=== PATIENT | female | born 1945 ===

== ENCOUNTER 2025-05-11 13:55 | Outpatient (AMB) | payer MEDICARE, OTHER, SELFPAY ==
--- OUTSIDE RECORDS SUMMARY | 2024-12-16 07:45 | XMS_ITS ---
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 Name Role Phone Becki CHACON, Eyad Primary Care Provider Unavail able Cathy Loaiza [phone] Encounters Encounter Location Date Provider Diagnosis [address] [address] 12/16/2024 Cathy Loaiza Plan Of Treatment Next Appt Details Provider Name:Cathy Loaiza , 06/14/2025 01:15:00 PM, [address] [place] [address], [place], [address], Progress Notes * Genesis FERNANDEZhDOB:1945 (79 yo F)Acc No.[id number]:12/16/2024 Progress Note Patient: Mehnaz BOTELLO Provider: Pablo Loaiza DPM :1945 A ge:79 Y S ex:Female Date:12/16/2024 [address] [id number] Pcp:Eyad Connell MD Subjective: * Chief Complaints: * * Medical History: Objective: * Vitals: Assessment: Plan: * Treatment: * Images: * The named appointment provid er may or may not be the originator of this progress note, and it is not deemed complete until electronically signed by the appointment provider. Sign off status: Pending * Provider: Pablo Loaiza DPM Date: 0 12/16/2024 Generated for Yoandy larson/Alberto/Samreen on: 1 07/12/2024 09:12 PM EST
--- OUTSIDE RECORDS SUMMARY | 2025-02-07 09:00 | XMS_ITS ---
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 Mechanic Apprentice Name Role Phone Eyad Connell MD Primary Care Provider Unavail able Cathy Loaiza Unavailable [phone] Medications Medication SIG (Take, Route, Frequency, Duration) Notes Start Date End Date Status Ultram Active Tretinoin 0.05 % 1 application in the evening to face Externally Once a day Active Omeprazole 20 MG 1 capsule 30 minutes before morning meal Orally Once a day; Duration: 30 day(s) Active Gabapentin 600 MG 1 tablet Orally Once a day; Duration: 30 day(s) Active Etodolac ER 600 MG 1 tablet with food Orally Once a day; Duration: 30 day(s) Active DULoxetine HCl 20 MG 1 capsule Orally Tw ice a day; Duration: 30 day(s) Active Myrbetriq 25 MG 1 tablet Orally Once a day; Duration: 30 day(s) Not-Figueroa ing Physical Therapy . . . 2-3x/week; Durat ion: 3-4 weeks 08/10/2020 Not-Taking Night Splint AFO - L1930 as directed 08/10/2020 Not-Taking Estradiol Acetate 0.1 MG/24HR as directed Vaginal Not-Taki ng Cetirizine HCl 10 MG 1 tablet Orally Onc e a day; Duration: 30 day(s) Not-Figueroa ing Eliquis 5 MG 1 tablet Orally Twic e a day Not-Taking Encounters En[facility] Date [facility] [place] [address] 02/07/2025 Cathy Loaiza Plan Of Treatment Next Appt Details Provider Name:Cathy Loaiza , 06/14/2025 01:15:00 PM, [address] [facility], [place], [address], Progress Notes * Genesis FERNANDEZhDOB:1945 (79 yo F)Acc No.[id number]:02/07/2025 Progress Note Patient: Mehnaz BOTELLO Provider: Pablo Loaiza DPM :1945 A ge:79 Y S ex:Female Date:02/07/2025 [address]: [address] [facility] Pcp:Eyad Connell MD Subjective: * Chief Complaints: * * Medical History: * Medications: T aking DULoxetine HCl 20 MG Capsule Delayed Release Particles 1 capsule Orally Twice a day , Taking Etodolac ER 600 MG Tablet Extended Release 24 Hour 1 tablet with food Orally Once a day , Taking Gabapentin 600 MG Tablet 1 tablet Orally Once a day , Taking Omeprazole 20 MG Capsule Delayed Release 1 capsule 30 minutes before morning meal Orally Once a day , Taking Tretinoin 0.05 % Cream 1 application in the evening to face Externally Once a day , Taking Ultram , Not-Taking/PRN Eliquis 5 MG Tablet 1 tablet Orally Twice a day , Not-Taking/PRN Cetirizine HCl 10 MG Tablet 1 tablet Orally Once a day , Not-Taking/PRN Estradiol Acetate 0.1 MG/24HR Ring as directed Vaginal , Not-Taking/PRN Night Splint AFO - L1930 as directed , Not-Taking/PRN Physical Therapy . . . . 2-3x/week , Not-Taking/PRN Myrbetriq 25 MG Tablet Extended Release 24 Hour 1 tablet Orally Once a day Objective: * Vitals: Assessment: Plan: * Treatment: * Images: * The named appointment provid er may or may not be the originator of this progress note, and it is not deemed complete until electronically signed by the appointment provider. Sign off status: Pending * Provider: Pablo Loaiza DPM Date: 0 02/07/2025 Generated for Yoandy larson/Alberto/eTransmitting on: 1 07/12/2024 09:11 PM EST
--- NOTE | 2025-05-11 13:57 | A.PHYSOV ---
Vital Signs 05/11/25 13:58 Height 5 ft 2 in Weight 133 lb BMI 24.3 Intake Visit Reasons: Reevaluation for back injection Intake Note: Patient is a 79 year old female in office today for a re-evaluation for back injections. 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 She has a history of L4-L5 fusion and has developed spinal stenosis above the fusion site. A lumbar spine MRI from August 27, 2021, demonstrated moderate central and bilateral neuroforaminal stenosis at the L3-L4 level. Her pain is exacerbated by standing and walking and is relieved by sitting. The patient does not use any assistive devices. She underwent bilateral L3 transforaminal injections on May 24, 2024, which improved her leg pain and sleep for approximately one year. Recently, she has experienced significant pain in her left leg, particularly when lying down, which keeps her awake at night. She notes that finding a position to relieve the pain can be difficult. Over the summer, the patient was ill with a viral infection and subsequently contracted Lyme disease, which led to unintentional weight loss. She also has a history of shortness of breath, and an evaluation in November 2024 suggested a possible 70% arterial blockage. However, a subsequent cardiac procedure in March determined that the blockage was not significant enough to require a stent. Pain Description - Location: The patient reports chronic lower back pain and significant pain in her left leg. - Quality: Left leg pain keeps her awake at night. - Exacerbating Factors: Pain is worsened by standing and walking, and the left leg pain is worse when lying down. - Relieving Factors: Pain is relieved by sitting down. - Functional Interference: Her left leg pain interferes with her ability to sleep. Results - Imaging: Lumbar spine MRI dated August 27, 2021, showed moderate central and bilateral neuroforaminal stenosis at L3-L4. - Procedures: Cardiac catheterization in March showed an arterial blockage that was not significant enough to require a stent. [facility] Medical History (Updated 05/11/25 @ 14:24 by Kevin Paz DO) Post laminectomy syndrome Lumbar radiculitis Spinal stenosis, lumbar region with neurogenic claudication Surgical History (Updated 05/11/25 @ 14:03 by Tracy Gonzales MA) History of ankle surgery (Unknown) History of cataract surgery History of tonsillectomy H/O: hysterectomy History of lumbar fusion Social History Household Members: Children Alcohol intake: current Alcohol intake frequency: does not drink Patient Tobacco Use Status: Former Tobacco user Use of substances other than those prescribed or required for medical reasons: No Current occupational status: retired Review of Systems Narrative Review of Systems - Constitutional: Reports unintentional weight loss secondary to recent illness. - Cardiovascular: Reports history of shortness of breath; recent cardiac catheterization did not require stenting. - Musculoskeletal: Reports chronic lower back pain. - Neurological: Reports left leg pain that disturbs sleep, and some pain in the right leg. - Infectious Disease: Reports a recent viral illness and Lyme disease. Denies change in bowel bladder habits. Denies fever or chills. Physical Exam Exam Exam: Physical Exam - General: Appears to have lost weight. Patient ambulates without antalgia. Lumbar extension was restricted. Dural tension signs were negative. The SI provocative maneuvers were negative. Neurological examination was nonfocal. She was able to perform heel walk and toe walk with support for balance. Vital Signs: BMI result Body Mass Index 24.3 Assessment & Plan Assessment & Plan (1) Spinal stenosis, lumbar region with neurogenic claudication: Code(s): M48.062 - Spinal stenosis, lumbar region with neurogenic claudication Category: Medical (2) Lumbar radiculitis: Code(s): M54.16 - Radiculopathy, lumbar region Category: Medical (3) Post laminectomy syndrome: Code(s): M96.1 - Postlaminectomy syndrome, not elsewhere classified Category: Medical Plan Pain Management - Affect: The patient's left leg pain keeps her awake. - Analgesia: Bilateral L3 transforaminal injections approximately one year ago provided significant relief. - Activities of Daily Living: Pain is exacerbated by standing and walking. Plan Patient was informed and verbally consented to the use of an ambient scribe for clinic note documentation during this visit. 1. Lumbar Spinal Stenosis The patient's symptoms of chronic back pain and new-onset left leg pain are consistent with her known diagnosis of lumbar spinal stenosis at L3-L4, superior to her previous L4-L5 fusion. Given that she had significant, year-long relief from her previous procedure, the plan is to repeat bilateral L3 transforaminal epidural steroid injections. As the patient requires sedation, the procedure will be scheduled at the [facility] on a Thursday, with scheduling to occur after the holiday. 2. Coronary Artery Disease The patient's history of coronary artery disease, which was evaluated via cardiac catheterization and did not require a stent, is noted. She has been advised to continue with diet and exercise. This condition is stable and does not present a contraindication for the planned epidural steroid injection. Risks and benefits of the procedure were discussed with the patient. Potential alternative measures were also discussed. Patient understands that the procedure is completely elective. Potential side effects associated with injectable medications were discussed. All questions were answered to the patient's satisfaction. Discussion Notes I discussed with the patient that her returning leg pain is likely due to her known spinal stenosis. Given the significant relief from her prior injections about a year ago, I recommended repeating the bilateral L3 transforaminal epidural steroid injections. I explained that because she requires sedation, the procedure would need to be performed at the [facility]. The patient agreed to this plan and understands she will need a mobile lounge driver. We discussed that scheduling would occur after the hol, and she will be contacted by my staff. Patient Instructions - We will schedule you for bilateral L3 transforaminal steroid injections to help with your back and leg pain. - This procedure will be done with sedation, so you will need someone to drive you home. - The procedure will take place at the [facility]. - Our office will call you to schedule the appointment, which will be sometime after the . - Continue to follow your diet and exercise plan as recommended for your heart health. Orders: Referrals Physiatry Procedure Notification M48.062 - Spinal stenosis, lumbar region with neurogenic claudication, M54.16 - Radiculopathy, lumbar region, M96.1 - Postlaminectomy syndrome, not elsewhere classified Coding Level of Care Code Est Pt Level 4 (08136) Add On Problem Visit Only Diagnoses Spinal stenosis, lumbar region with neurogenic claudication M48.062 Lumbar radiculitis M54.16 Post laminectomy syndrome M96.1
[2025-05-11 13:58] VITALS: BMI 24.3
--- OUTSIDE RECORDS SUMMARY | 2025-05-11 21:11 | XMS_ITS | Patient Health Record ---
Author Organization [facility] Address [address] [facility] [place] [address] Care Team Providers Care Gate Watchman Name Role Phone Eyad Connell MD Primary Care Provider Unavail able Black, Cathy Unavailable [phone] Allergies Allergen (clinical drug ingredient) Drug/Non Drug Allergy documented on EMR Reaction Allergy Type Onset Date Status Adhesive skin tear Allergy Active Bee Sting swelling Allergy Active Dust Mites Unknown Allergy Active Latex Latex skin irritation Allergy Acti ve Mold Unknown Allergy Active Reason For Referral No Information Medications Medication SIG (Take, Route, Frequency, Duration) Notes Start Date End Date Status Cetirizine HCl 10 MG 1 tablet Orally Onc e a day; Duration: 30 day(s) Not-Figueroa ing Eliquis 5 MG 1 tablet Orally Twic e a day Not-Taking Ultram Active Tretinoin 0.05 % 1 application in the evening to face Externally Once a day Active DULoxetine HCl 20 MG 1 capsule Orally Tw ice a day; Duration: 30 day(s) Active Myrbetriq 25 MG 1 tablet Orally Once a day; Duration: 30 day(s) Not-Figueroa ing Physical Therapy . . . 2-3x/week; Durat ion: 3-4 weeks 08/10/2020 Not-Taking Night Splint AFO - L1930 as directed 08/10/2020 Not-Taking Estradiol Acetate 0.1 MG/24HR as directed Vaginal Not-Taki ng Omeprazole 20 MG 1 capsule 30 minutes before morning meal Orally Once a day; Duration: 30 day(s) Active Gabapentin 600 MG 1 tablet Orally Once a day; Duration: 30 day(s) Active Etodolac ER 600 MG 1 tablet with food Orally Once a day; Duration: 30 day(s) Active Social History Tobacco Use: Social History Observation Description Date Details (start date - stop date) Never Smoker NA - NA Tobacco use other than smoking: Question Answer Notes Are you an other tobacco user? No Tobacco Control (Standard) Question Answer Notes Tobacco use: Nonsmoker Additional Findings: Tobacco non-user Current no nsmoker AUDIT-C (Standard) Question Answer Notes Did you have a drink containing alcohol in the p ast year? 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) Active confirmed Problem Localized, primary osteoarthritis of the ankle and/or foot (301966053) Arthritis of joint of lesser toe, left (M19.072) Active confirmed Vital Signs Blood pressure diastolic 77 mm Hg 06/17/2024 Height 5 ft 2 in in 06/17/2024 Blood pressure systolic 120 mm Hg 06/17/2024 Weight 120 lbs 06/17/2024 BMI 21.95 kg/m2 06/17/2024 Procedures Procedure Date Ordered Date Performed Result Body Sit e 31254-QJHRCNH NAIL, 6 OR MORE 06/17/2024 N/A Encounters Encounter Location Date Provider Diagnosis [facility] [address] [place] [address] 06/17/2024 Cathy Black Tailor's bunion of l eft foot M21.622 ; Pain in left toe(s) M79.675 ; Tinea unguium B35.1 ; Pain in right toe(s) M79.674 ; Pain in left toe(s) M79.675 ; Right foot pain M79.671 ; Arthralgia of right foot M25.571 ; Bursitis of right foot M77.51 ; Tailor's bunion of right foot M21.621 ; Left foot pain M79.672 ; Arthralgia of left foot M25.572 ; Bursitis of left foot M77.52 ; Other hammer toe(s) (acquired), left foot M20.42 ; Arthritis of joint of lesser toe, left M19.072 and Subluxation of metatarsophalangeal joint of toe, initial encounter S93.149A [facility] [address] [address] 12/15/2024 Cathy Loaiza [facility] [address] 02/20/2025 Cathy Loaiza [facility] Encounter Date Diagnosis (ICD Code) Assessment Notes Treatment Notes Treatment Clinical Notes Section Notes 06/17/2024 Pain in left toe(s) (ICD-10 - M79.675) 06/17/2024 Tailor's bunion of l eft foot (ICD-10 - M21.622) 06/17/2024 Tinea unguium (ICD-1 0 - B35.1) 06/17/2024 Pain in right toe(s) (ICD-10 - M79.674) 06/17/2024 Pain in left toe(s) (ICD-10 - M79.675) 06/17/2024 Right foot pain (ICD -10 - M79.671) 06/17/2024 Arthralgia of right foot (ICD-10 - M25.571) 06/17/2024 Bursitis of right fo ot (ICD-10 - M77.51) 06/17/2024 Tailor's bunion of right foot (ICD-10 - M21.621) 06/17/2024 Left foot pain (ICD- 10 - M79.672) 06/17/2024 Arthralgia of left f oot (ICD-10 - M25.572) 06/17/2024 Bursitis of left edie t (ICD-10 - M77.52) 06/17/2024 Other hammer toe(s) (acquired), left foot (ICD-10 - M20.42) 06/17/2024 Arthritis of joint o f lesser toe, left (ICD-10 - M19.072) 06/17/2024 Subluxation of metatarsophalangeal joint of toe, initial encounter (ICD-10 - S93.149A) Plan Of Treatment Pending Test Test Name Order Date X ray : Foot, left 3V 08/10/2020 X ray : Foot, right 3V 08/10/2020 [id number] NAIL, 6 OR MORE 01/24/2022 [id number] NAIL, 6 OR MORE 07/30/2022 [id number] NAIL, 6 OR MORE 12/09/2022 [id number] NAIL, 6 OR MORE 04/10/2023 [id number] NAIL, 6 OR MORE 12/25/2023 [id number] NAIL, 6 OR MORE 06/17/2024 Next Appt Details Provider Name:Cathy Parikh Josse , 06/14/2025 01:15:00 PM, [address] [facility], [place], [address], Insurance Providers Payer Name Payer Address Payer Phone Subscriber Number Group Number Insured Name Patient Relationship to Insured Coverage Start Date Coverage End Date Medicare National [employer]t [employer] [address] [facility] [address] [id number] Mehnaz Kemp Self - patient is the insured 1 [employer] [address] [place] [address] [id number] Mehnaz Kemp Self - patient is the insured 1 for Life [address] [place] [address] [phone] [id number] Mehnaz Kemp Self - patient is the insured 1 Medical (General) History Medical History History ICD Code Anemia Arthritis Back,Hip,and Knee pain Broken bones Cataracts Hiatal hernia Numbness Reflux chronic sinusitis Warts Measles Mumps Chicken pox Bone implants/screws Osteoporosis Surgical History Surgery Date(Month/Year) Appendicitis 2017 Bladder repair 2013 Hysterectomy 2013 bunions 1985 broken nose 04/23/2018 back surgery 2016
--- OUTSIDE RECORDS SUMMARY | 2025-05-11 21:12 | XMS_ITS | Clinical Summary ---
Author Organization [facility] Address [address] [place] [address] Phone Care Team Providers Care Costume Shop Manager Name Role Phone Eyad Connell MD Primary Care Provider [phone] Allergies Active Allergy Reactions Criticality Noted Date Comments Adhesive Tape-Silicones 2009 Bee Venom Protein (Honey Bee) 2021 Cat Dander 05/01/2017 House Dust 06/05/2014 Sinus congestion Latex 05/28/2015 Mold 06/05/2014 Sinus congestion Medications cetirizine (ZyrTEC) 10 mg capsule Take 1 Tab by mouth daily. Active cholecalciferol (VITAMIN D-3) 25 mcg (1,000 unit) tablet Take 1 Tab by mouth daily. 7 Active DULoxetine (CYMBALTA) [address] capsule Take 1 Capsule by mouth daily. Per Physiatry 3 Active EPINEPHrine (EpiPen 2-Stepan) 0.3 mg/0.3 mL injection Inject 1 Each as directed as needed for Other (anaphylaxis). 3 Active etodolac XL (LODINE XL) 600 mg 24 hr tablet Take 1 Tablet by mouth daily. 3 Active fluticasone propionate (FLONASE) 50 mcg/actuation nasal spray 2 sprays to each nostril daily 5 Active gabapentin (NEURONTIN) 300 mg capsule 2 capsules (600 mg total) 2 (two) times a day. 3 Active omeprazole (PriLOSEC) [address] capsule TAKE 1 CAPSULE BY MOUTH DAILY 4 Active tretinoin (RETIN-A) 0.05 % cream 0 Active valACYclovir (VALTREX) 500 mg tablet Take 1 Tablet by mouth daily. 3 Active Active Problems Problem Noted Date Diagnosed Date Pulmonary embolism 10/28/2022 Sleep apnea 09/04/2022 Class 1 obesity 03/30/2022 Thyroid function study abnormality 07/15/2020 Acne 03/24/2020 GERD (gastroesophageal reflux disease) 0 Nocturnal hypoxia 10/22/2018 Overview (04/26/2024): [facility] Overnight Oximetry: Date 08/07/2018; Wt 150#; BMI 27; average oxygen saturation 84% (lowest 82% with saturations <88% for 5% or more of study). Study limited time of 22 minutes. - Nocturnal hypoxia. (Note 2014 polysomnogram did not diagnose SHAUNA or hypoxia). 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 NO REM noted on study but only slept for about 151 minutes. Unsteady gait 07/18/2011 Overview (04/26/2024): [facility] Constipation 04/11/2010 Overview (04/26/2024): 08/08 admitted for partial SBO which was self-resolving Arthritis 2009 Overview (04/26/2024): Used to see Dr Ortega. RF positive, but per patient her arthritis has not been felt to be from RA. Hard of hearing 2009 Hypercholesterolemia 2009 IBS (irritable bowel syndrome) 2009 Osteoporosis 2009 Overview (04/26/2024): Prolia 03/18/18. /. 06/08/20 Apparently on Fosamax for 10 yrs in the past, unclear; DXA 11/15 shows osteopenia. Immunizations Immunization Administration Dates Next Due Influenza trivalent, 0.5mL, preservative free (Fluarix; FluLaval; Fluzone) ages 6mo and older (Afluria) 3 years and older 02/13/2011 Td Tetanus diptheria (Tdvax) 7yo and older 02/04,12/12/2010 Tdap Tetanus diptheria acell ular pertussis (Boostrix; Adacel) 7yo and older 10/10/2019 Surgical History Surgery Date Site/Laterality Comments OTHER SURGICAL HISTORY 2003 PROCEDURE: ---- OTHER ----; COMMENT: R 2nd toe surgery, to correct problem from bunionectomy OTHER SURGICAL HISTORY 1994 PROCEDURE: ---- OTHER ----; COMMENT: R ear surgery, ?otosclerosis OTHER SURGICAL HISTORY 1979 PROCEDURE: ---- OTHER ----; COMMENT: bunionectomy OTHER SURGICAL HISTORY PROCEDURE: ---- OTHER ----; COMMENT: cone biopsy HYSTERECTOMY 03/16/2013 PROCEDURE: [place] VAGINAL HYSTERECTOMY UTERUS 250 GM/<; COMMENT: with cystocele and rectocele repair BACK SURGERY 08/27/2015 PROCEDURE: HISTORICAL BACK SURGERY; COMMENT: Dr Suarez OTHER SURGICAL HISTORY 04/23/2018 PROCEDURE: ---- OTHER ----; COMMENT: closed reduction nasal surgery for nasal fracture FOOT SURGERY 10/2020 Left PROCEDURE: HISTORICAL FOOT SURGERY OTHER SURGICAL HISTORY 2020 Bilateral PROCEDURE: HISTORY OTHER; COMMENT: eyelid surgery ANKLE SURGERY 03/2021 Right PROCEDURE: HISTORICAL ANKLE SURGERY CATARACT EXTRACTION W/ INTRAOCULAR LENS IMPLANT Bilateral APPENDECTOMY N/A Medical History Medical History Date Comments Hypercholesterolemia 2009 DX:Hypercho lesterolemia IBS (irritable bowel syndrome) 2009 D X:IBS (irritable bowel syndrome) Osteoporosis 2009 DX:Osteoporosis Unsteady gait 07/18/2011 DX:Unsteady gait ; COMMENT: [facility] Family history of colon cancer 08/25/2012 D X:Family history of colon cancer; COMMENT: Per Dr Turk, q5yr colo for multiple 2nd degree relatives Lumbago 06/04/2015 DX:Lumbago GERD (gastroesophageal reflux disease) 0 DX:GERD (gastroesophageal reflux disease) Anogenital herpesviral infection DX:Anogenital herpesviral infection Family History Medical History Relation Name Comments Breast cancer Aunt maternal aunt Other: myelofibrosis Brother Prostate cancer Brother Diabetes Daughter prediabetic Other: Other Daughter obesity Other: accident Father head injury- at work- Other: heart disease Father's side three paternal uncles heart disease Other: Other Maternal Grandfather ag e 93 ? cause Breast cancer Maternal Grandmother Coronary artery disease Mother late r in life Glaucoma Mother Heart attack Mother Hypertension Mother of heart f ailure Leukemia Mother age 65 Rheum arthritis Mother Thyroid disease Mother Breast cancer Other 1 maternal first cousin Other: thyroid cancer Other 2 matern al first cousin Prostate cancer Other [address] cousin Other: TB Paternal Grandfather in his 30s Stroke Paternal Grandmother ag e 86 Other: throat issues , unsur e of what Son Colon cancer Uncle 1 Other: heart attack Uncle 2 maternal uncle age 58 Autoimmune disease Neg Hx Heart failure Neg Hx Hyperlipidemia Neg Hx Mental illness Neg Hx Prostate cancer Neg Hx Sleep apnea Neg Hx Relation Name Status Comments Aunt Brother Daughter Alive Father Father's side Maternal Grandfather Maternal Grandmother Mother Other 1 Other 2 Other 3 Paternal Grandfather Paternal Grandmother Son Alive Uncle 1 Uncle 2 Social History Tobacco Use Types Packs/Day Years Used Date Smoking Tobacco: Former Cigarettes 1 Q uit: 06/01/1967 Tobacco Cessation:Counseling Given: Not Answered Alcohol Use Standard Drinks/Week Comments Yes 0 (1 standard drink = 0.6 oz pur e alcohol) Interpersonal Safety Answer Date Record ed Physical Abuse Unrecognized value 05/24/2024 Verbal Abuse Unrecognized value 05/24/2024 Comments No Sex and Gender Information Value Date Recorded Sex Assigned at Female 05/24/2024 7:34 AM EST Legal Sex Female 2:37 AM EST Gender Identity Female 05/24/2024 7:34 AM EST Sexual Orientation Straight 05/24/2024 7: 34 AM EST Last Filed Vital Signs Vital Sign Reading Time Taken Comments Blood Pressure 136/77 05/24/2024 9:20 AM EST Pulse 82 05/24/2024 9:20 AM EST Temperature 37 C (98.6 F) 05/24/2024 9:20 AM EST Respiratory Rate 15 05/24/2024 8:55 AM EST Oxygen Saturation 93% 05/24/2024 9:20 AM EST Inhaled Oxygen Concentration - - Weight 72.1 kg (159 lb) 05/24/2024 8:05 AM EST Height 152.7 cm (5' 0.12 ) 05/24/2024 8:05 AM ES T Body Mass Index 30.93 05/24/2024 8:05 AM EST Plan of Treatment Health Maintenance Due Date Last Done Comments Zoster Vaccines (1 of 2) 12/12/1995 RSV Immunization Adult Patients (1 - 1-dose 75+ series) 2020 Social Influencers of Health Screening 05/04/2022 Medicare Annual Wellness Visit 10/07/2023 10/06/2022 Hypertension/CHF/CAD Annual BMP Blood Test 03/27/2024 10/06/2022 Depression Screening 06/01/2024 COVID-19 Vaccine ( - 2024-2 6 season) 2025 Influenza Vaccine (#1) 2025 02/13/2011 Cholesterol Screening (Lipid Panel) 03/19/2025 03/19/2020 Falls Risk Assessment 05/24/2025 05/24/2024 DTaP,Tdap,and Td Vaccines (4 - Td or Tdap) 10/09/2029 10/10/2019, 02/04/2011, 12/12/2010 Osteoporosis Screening (Bone Density Screening) 03/14/2031 03/14/2021 Hepatitis C Screening Completed 12/07/2015 Pneumococcal Vaccine: 50+ Years Completed 04/28/2023 HIB Vaccines Aged Out No longer eligi ble based on patient's age to complete this topic HPV Vaccines Aged Out No longer eligi ble based on patient's age to complete this topic Hepatitis A Vaccines Aged Out No long er eligible based on patient's age to complete this topic Hepatitis B Vaccines Aged Out No long er eligible based on patient's age to complete this topic IPV Vaccines Aged Out No longer eligi ble based on patient's age to complete this topic MMR Vaccines Aged Out No longer eligi ble based on patient's age to complete this topic Meningococcal ACWY Vaccine Aged Out N o longer eligible based on patient's age to complete this topic Meningococcal B Vaccine Aged Out No l onger eligible based on patient's age to complete this topic RSV Immunization Patients Under 20 months Aged Out No longer eligible b ased on patient's age to complete this topic Varicella Vaccines Aged Out No longer eligible based on patient's age to complete this topic Medical Devices Implanted Type Area Global Regulatory Lead Device Identifier Shelf Expiration Date Model / Serial / Lot Opthalmology Implants Opthalmology Implants Bilateral : Eye Spinal Hardware Spinal Hardware N/A: Spine Lumbar Procedures Procedure Name Priority Date/Time Associated Diagnosis Comments ANNUAL BMP BLOOD TEST Routine 10/06/2022 DXA BONE DENSITY STUDY 1+ SITS AXIAL SKEL Routine 03/14/2021 10:26 AM EDT Localized osteoporosis ([place]) LIPID PANEL Routine 03/19/2020 HEPATITIS C SCREENING Routine 12/07/2015 from Last 3 Months or Most Recently Relevant to Health Maintenance Results * Annual BMP Blood Test (10/06/2022) Annual BMP Blood Test Abstracted Historical Provider HEALTH MAINTENANCE Final Result * DXA BONE DENSITY STUDY 1+ SITS AXIAL SKEL (03/14/2021 10:26 AM EDT) Anatomical Region Laterality Modality Bone Densitometr y 01/10/2021 10:3 3 AM EDT Narrative 03/14/2021 6:04 PM EDT BONE DENSITY Lumbar Spine T-score is -1.7 (SD relative to 20-29 y/o adult) Z-score is +0.7 (SD relative to age matched peers) This is consistent with osteopenia by criteria defined by the WHO. Left Hip T-score is -2.7 Z-score is +0.6 This is consistent with osteoporosis by criteria defined by the WHO. Comparison exam(s): significant decrease in bone density of hip and lumbar spine when compared to most recent bone density examination Confidence level is +/-95%. Impression: Based on the World Health Organization criteria, Mehnaz Kemp should be classified as having osteoporosis. [facility] Department of Internal Medicine recommends using National Osteoporosis Foundation (NOF) guidelines in treatment decisions related to osteoporosis. NOF guidelines suggest considering treatment for postmenopausal women and men aged 50 or older presenting with the following: History of hip or vertebral fracture. T-score less than or equal to -2.5 (DXA) at the femoral neck, total hip, or spine, after appropriate evaluation to exclude secondary causes. Low bone mass (T-score between -1.0 and -2.5 at the femoral neck or spine) AND a 10-year probability of a hip fracture greater than or equal to 3% OR a 10-year probability of a major osteoporosis-related fracture greater than or equal to 20% based on the [place]-adapted WHO algorithm Please note that all treatment decisions require clinical judgment and consideration of individual patient factors, including patient preferences, co-morbidities, previous drug use, risk factors not captured in the FRAX model (e.g., frailty, falls, vitamin D deficiency, increased bone turnover, interval significant decline in bone density) and possible under- or over-estimation of fracture risk by FRAX. Procedure Note Rehana Castellanos MD - 05/20/2022 BONE DENSITY Lumbar Spine T-score is -1.7 (SD relative to 20-29 y/o adult) Z-score is +0.7 (SD relative to age matched peers) This is consistent with osteopenia by criteria defined by the WHO. Left Hip T-score is -2.7 Z-score is +0.6 This is consistent with osteoporosis by criteria defined by the WHO. Comparison exam(s): significant decrease in bone density of hip andlumbar spine when compared to most recent bone density examination Confidence level is +/-95%. Impression: Based on the World Health Organization criteria, Mehnaz Kemp should beclassified as having osteoporosis. [facility] Department of Internal Medicine recommendsusing National Osteoporosis Foundation (NOF) guidelines in treatmentdecisions related to osteoporosis. NOF guidelines suggest consideringtreatment for postmenopausal women and men aged 50 or older presentingwith the following: History of hip or vertebral fracture. T-score less than or equal to -2.5 (DXA) at the femoral neck, total hip,or spine, after appropriate evaluation to exclude secondary causes. Low bone mass (T-score between -1.0 and -2.5 at the femoral neck or spine)AND a 10-year probability of a hip fracture greater than or equal to 3% ORa 10-year probability of a major osteoporosis-related fracture greaterthan or equal to 20% based on the [place]-adapted WHO algorithm Please note that all treatment decisions require clinical judgment andconsideration of individual patient factors, including patientpreferences, co-morbidities, previous drug use, risk factors not capturedin the FRAX model (e.g., frailty, falls, vitamin D deficiency, increasedbone turnover, interval significant decline in bone density) and possibleunder- or over-estimation of fracture risk by FRAX. Nora CASTILLO IMG DXA PROCEDURES Final Re sult * (ABNORMAL) Lipid panel (03/19/2020) Pathologist [facility] LDL/HDL Ratio 5(A) 0 - 4 Triglycerides 224(A) 0 - 150 mg/dL Cholesterol 262(A) 0 - 200 mg/dL HDL 51 >=40 mg/dL LDL Cholesterol 167(A) 0 - 100 mg/dL Blood Venous blood specimen / Unknown Historical Provider LAB BLOOD ORDERABLES Ale l Result * Hepatitis C Screening (12/07/2015) Pathologist [facility] Hepatitis C Screening Abstracted Historical Provider HEALTH MAINTENANCE Final Result from Last 3 Months or Most Recently Relevant to Health Maintenance Insurance MEDICARE [facility] Care Teams Costume Shop Manager Relationship Specialty Start Date End Date Eyad Connell MD [address] [place] [id number] PCP - General 06/03/23
--- OUTSIDE RECORDS SUMMARY | 2025-05-11 21:12 | XMS_ITS | Data Portability ---
Author Organization [facility], [facility] Address [address] [place] [address] Care Team Providers Care Trade Mark Attorney Name Role Phone AYO LARRY Primary Care Provider Assessment No assessment recorded. Plan of Treatment Reminders Order Date Submit Date Provider Last Modified By Organization Details Last Modified Time Details Appointments None record ed. Lab None record ed. Referral None record ed. Procedures None record ed. Surgeries None record ed. Imaging XR, knee, 4 or more view - new eval left knee pain. room 219 025 09/08/19 [facility] Office, [address], [facility] [address], [place], [address], 14:44:23 Medication Orders None record ed. Patient TargetsNo targets recorded. Patient InstructionsNo instructions recorded. Reason for Referral None Reported. Results Created Date Observation Date Name Description Value Unit Range Abnormal Flag Note LastModifiedBy Organization Detail LastModifiedTime 09/08/1909/07/2024 XR, knee, 4 or more view http:/ [email or web address] ?Encry pted=s hAaTro YD8dLq bEUv6g %2BXZw aYqtaq 0bqfl% 2Fg9IQ a4ajBk vP9nXo QUaueC m3YtLR FvZlgJ JJ8mAn HZtai3 8q7886 AC0KqY 3mBWaS lKiQtr MwF INTERFACE [facility] [address], [place], [address], 09/07/2024 14:44:23 0409/07/2024 XR, knee, 4 or more view http:/ [email or web address] ?Encry pted=s hAaTro YD8dLq bEUv6g %2BXZw aYqtaq 0bqfl% 2Fg9IQ a4ajBk vP9nXo QUaueC m3YtLR FvZlgJ JJ8mAn HZtai3 5i1732 AC0KqY 3mBWaS lKiQtr MwF INTERFACE [facility] [address] [facility] [address] [address], [place], [address], 09/07/2024 14:44:24 Result Notes Documentation Provider Name and Address Organization Details Recorded Time Xr, Knee, 4 Or More View : [email or web address] Encrypted=unXkTjvSM4jBaqD Uv6g%0MVRlkPsesg6licf%2Fg 1KKq9yaEniX0qClZNyjmVm9Gk SZDgTvjROJ4aSqRKimg30s120 2CC2FlL9dOXvTsTaYruLeQ Not Available [facility] 09/07/2024 14:44: 23 Xr, Knee, 4 Or More View : [email or web address] Encrypted=tcWxEcaNZ0xGniW Uv6g%0ZKKbkCfcis5bieg%2Fg 3SMs5lmXhdW6tJvWRfjxFr7Qj KGCjQipRBA5eBzQOhch53p211 2DW4QuG2yYUvRrIxAdfQbC Not Available [facility] 09/07/2024 14:44: 25 Problems Name Problem SNOMED Code Status Onset Date Resolution Date Notes Provider Name and Address Organization Details Recorded Time Pain of left knee joint 5842475396744 07 Active 2024 VALENTINA agarwal [place] - [facility] 14:21:40 Osteoarthri tis of left knee joint 8911581440267 09 Active 2024 Stephan Dutille, PA-C [address], [place], [address], [facility] 5 07:17:37 Problem Notes None recorded. Procedures Surgical History Date Name Laterality Status Provider Name and Address Organization Details Recorded Time 10/19/2024 Sports Knee 4&1 completed ANNA Owen-Jenniffer [address], [place], [address], [facility] 10/20/2024 07:57:10 Imaging Results None recorded. Procedure Notes None recorded. Medical Equipment None Reported. Allergies Allergen ID Allergen Name Allergen Category Reaction Reaction Severity Criticality Documentation Date Start Date Code Code System Note Provider Name and Address Organization Details Recorded Time 08428 latex environme nt,medica tion Not available Not available Not available 08/03/20232020 00727 91 RxNorm Not Available [facility] 4 14:47:41 Medications Name Sig Start Date Stop Date Status Note LastModified by Organization Details LastModified Time atorvastati n 20 mg tablet TAKE 1 TABLET BY MOUTH DAILY active Not Available Not Available No t Available aspirin 81 mg tablet,willis yed release TAKE 1 TABLET BY MOUTH DAILY active Not Available Not Available No t Available tramadol 50 mg tablet TAKE 1 TO 2 TABLETS BY MOUTH EVERY 6 HOURS NEEDED FOR MODERATE PAIN active Not Available Not Available No t Available spironolact one 25 mg tablet Take 1 tablet every day by oral route. active Not Available Not Available No t Available gabapentin 300 mg capsule TAKE 2 CAPSULES BY MOUTH THREE TIMES DAILY active Not Available Not Available No t Available omeprazole 20 mg capsule,del ayed release TAKE 1 CAPSULE DAILY NEEDED FOR DYSPEPSIA active Not Available Not Available No t Available diclofenac sodium 75 mg tablet,willis yed release TAKE 1 TABLET BY MOUTH TWICE DAILY NEEDED active Not Available Not Available No t Available etodolac ER 600 mg tablet,exte nded release 24 hr TAKE 1 TABLET DAILY NEEDED FOR PAIN, MODERATE active Not Available Not Available No t Available metoprolol tartrate 25 mg tablet TAKE 1/2 TABLET BY MOUTH TWICE DAILY active Not Available Not Available No t Available omeprazole active Not Available Not Av ailable Not Available tramadol active Not Available Not Avai lable Not Available Cymbalta active Not Available Not Avai lable Not Available oxycodone HCl-oxycodo ne-ASA 1 Q 4-6HRS PRN PAINDO NOT DRIVE WHILE ON THIS MEDICATIO N 09/07 completed Statu s: 'Curr ent'; Not Available Not Available Not Available Vitals Date Recorded Body height Body mass index (BMI) Body weight Provider Name and Address Organization Details Last Updated DateTime 09/07/2024 154.94 cm 27.6 kg/m2 42073.49 g VALENTINA L'HEUREUX [facility] 09/07/2024 14:19:15 Date Recorded Body height Body mass index (BMI) Body weight Provider Name and Address Organization Details Last Updated DateTime 10/19/2024 154.94 cm 27.4 kg/m2 88971.89 g Janel Sanon [facility] 10/19/2024 14:15:33 Social History Question Answer Notes LastModified by [employer] Details LastModified Time Tobacco Smoking Status Never Smoker VALENTINA L'HEUREUAsya [facility] 09/07/2024 14:21:05 What Is Your Relationship Status? Information not available 09/07/2024 Sex: Unknown Functional Status Question Answer Note LastModified by Organizat ion Details LastModified Time Do you use any illicit or recreational drugs? No Information not available 09/07/2024 Do you or have you ever used any other forms of tobacco or nicotine? No Information not available 09/07/2024 What is your level of alcohol consumption? None Information not available 09/07/2024 Mental Status None recorded. Family History Nothing Reported. Medical History Condition Response Allergies/Hayfever N Coronary Artery Disease N Anxiety/Depression N Breathing or lung disorders N Emphysema N Nerve Disorders N Thyroid Problems N COPD N Pacemaker N Anemia N Kidney/Bladder Problems N Vascular Disease N Heart Trouble Y Gastrointestinal Disease N Heart Attack (AR) N Cholesterol N Diabetes N Autoimmune disease N Inflammatory Joint disease N Bleeding Disorder N Orthotics N Seizures/Epilepsy N Arthritis N Blood Clot Y AIDS/HIV N Congestive Heart Failure (CHF) N Acid Reflux (GERD) N Cancer N Stroke N Asthma N Circulation Problems N Peripheral Vascular Disease N Sleep Apnea Y Hepatitis N Heart Disease N Rheumatoid Arthritis N Pulmonary Embolism N Arrhythmia N Headaches N Fibromyalgia N Hypertension N Osteoporosis N Gynecological HistoryNo gynecological history recorded. Obstetrics History GPAL:G 0 P 0 0 0 0 Past Encounters Encounter ID Performer Location Encounter Start Date Encounter Closed Date Diagnosis/Indication Diagnosis SNOMED-CT Code Diagnosis ICD10 Code Diagnosis IMO Codes Diagnosis Note [id number] JOHN Owen 2[address] floor [address] [place] [address] 09/07/2024 13:55:27 09/26/2024 17:21:52 Pain of left knee joint 8250633316 60149 M25.562 044658 Osteoarthr itis of left knee joint 5077963414 82418 M17.12 [id number] JOHN Owen [facility] [address] [place] [address] 10/19/2024 14:10:42 10/31/2024 16:10:15 Osteoarthritis of left knee joint 2302400763 19214 M17.12 3937900 Health Concerns Section Related Observation LastModified by Organization Detai ls LastModified Time None Recorded Concern Status LastModified by Organization Details LastModified Time None Recorded Advance Directives Directive None Recorded Payers Insurance Date Sequence Insurance Name Policy Number Policy Motta Covered Member ID Motta Member ID Guarantor Name 10/31/2024 2 [place] [id number] Mehnaz Kemp [id number] Mehnaz Kemp 10/19/2024 1 [place] [employer] Mehnaz Kemp [id number] Mehnaz Kemp Notes Date Note Type Note Provider Name and Address Organization Details Recorded Time 09/07/2024 text/html I am seeing the patient today under the supervision of Dr. Aguero who was available but who did not see the patient. HPI: This patient is a 78-year-old female who presents for orthopedic evaluation with chronic history of left knee pain. She has been evaluated by myself 02/20/2021 and diagnosed with patellofemoral arthritis. She elected conservative management at that time and had a cortisone injection. She has done fairly well with intermittent symptoms but recently has noted increased pain especially with stairs squatting and kneeling and other patellar loading activities. She feels significant grinding and cracking in the knee. Past family, medical, social history and review of systems has been reviewed, updated and signed by me and is located in the patient's chart. Examination: The patient is well appearing and in no apparent distress. Alert and oriented x3. Gait is symmetric. Patient arises from sitting with some difficulty. Ambulates with minimal antalgia. Pain reproduced with bending and squatting maneuvers. Significant audible and palpable retropatellar crepitus noted throughout arc of motion both standing and seated. Medial and lateral joint lines are nontender. No laxity is found. No malalignment. X-rays ordered, obtained and independently reviewed today at [facility]. 4 views of the left knee which include standing AP, Pacheco and sunrise views bilaterally as well as lateral of the left. These are notable for advanced severe grade 4 osteoarthritis patellofemoral joints bilaterally worse on the left. 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 Treatment options were discussed. At this time she is not interested in aggressive surgical management or cortisone. She will trial conservative measures with avoidance evaluating activities. Oral NSAIDs as needed. Topical treatments. Recheck in 6 weeks and if no improvement consider injection. She is comfortable with this recommendation and plan. Stephan Freedman PA-C [address] [place] [address] [address] [facility] [place], [place], [address], [facility] 09/13/2024 07:17:59 10/19/2024 text/html I am seeing the patient today under the supervision of Dr. Malik who was available but who did not see the patient. HPI: This patient has a chronic history of patellofemoral arthritis left knee. Treated several years ago with a cortisone injection with excellent long-lasting benefit. She was seen for follow-up 6 weeks ago and elected conservative care and elected to hold off on intra-articular injection. Since that visit she has had off-and-on symptoms of pain and she returns today interested in receiving a repeat injection. Current other treatments include anti-inflammatory and she is taking etodolac, tramadol and Cymbalta. Past family, medical, social history and review of systems has been reviewed, updated and signed by me and is located in the patient's chart. Examination: The patient is well appearing and in no apparent distress. Alert and oriented x3. Gait is symmetric. The left knee has retropatellar crepitus. There is a trace joint effusion. No erythema, redness or warmth. Both lower extremities are neurovascular intact. No ligamentous laxities. Intact strength and stability. Impression: Patellofemoral arthritis left knee Plan: Patient is interested in repeating intra-articular injection today. She agreed to injection which was performed without difficulty. Initial response was excellent. Recheck as needed. Please see procedure note. Stephan Freedman PA-C [address], [place], [address], [facility] 10/20/2024 07:57:50 OBGyn Episode No OBEpisode recorded.
--- OUTSIDE RECORDS SUMMARY | 2025-05-11 21:12 | XMS_ITS | Clinical Summary ---
Author Organization [facility] Prior to 10/29/24 Address [address] [place] [address] Care Team Providers Care Heading Up Machine Operator Name Role Phone Eyad Connell MD Primary Care Provider [phone] Allergies No known active allergies Medications No known medications Active Problems No known active problems Social History Tobacco Use Types Packs/Day Years Used Date Smoking Tobacco: Never Assessed Sex and Gender Information Value Date Recorded Sex Assigned at Not on file Gender Identity Not on file Sexual Orientation Not on file Job Start Date Occupation Industry Not on file Not on file Not on file Last Filed Vital Signs Vital Sign Reading Time Taken Comments Blood Pressure 132/57 06/03/2023 11:02 AM EST Pulse 83 06/03/2023 11:02 AM EST Temperature 36.4 C (97.6 F) 06/03/2023 11:02 AM EST Respiratory Rate - - Oxygen Saturation 99% 06/03/2023 11:02 AM EST Inhaled Oxygen Concentration - - Weight 72.6 kg (160 lb) 06/03/2023 11:02 AM EST Height 157.5 cm (5' 2 ) 06/03/2023 11:02 AM EST Body Mass Index 29.26 06/03/2023 11:02 AM EST Plan of Treatment Health Maintenance Due Date Last Done Comments Hepatitis C Screening 1945 COVID-19 Vaccine (#1) 06/13/1946 Depression Screening 1957 Preventative Health Evaluation 12/12/1963 Shingrix-Zoster Vaccine (1 o f 2) 12/12/1995 Fall Risk Assessment 2010 Osteoporosis Screening (DEXA Scan) 2010 RSV Adult > 60+ Yrs or (1 - 1-dose 75+ series) 2020 Influenza Vaccine (#1) 2025 02/13/2011 DTap / Tdap / Td (2 - Td or Tdap) 10/09/2029 10/10/2019, 02/04/2011, 12/12/2010 Pneumococcal Vaccine Completed 04/28/2023 Hepatitis B Vaccines Aged Out No long er eligible based on patient's age to complete this topic RSV Ped < 20 months Aged Out No longe r eligible based on patient's age to complete this topic Care Teams Heading Up Machine Operator Relationship Specialty Start Date End Date Eyad Connell MD [address] [place] [address] PCP - General Internal Medicine 06/03/23
--- OUTSIDE RECORDS SUMMARY | 2025-05-11 21:12 | XMS_ITS ---
Author Name [facility] Organization Unknown Care Team Organization Name Specialty Phone Email Start Date End Da te [facility] Dloly [place] Primary Care 05/13/20232023 [facility] Kaz Sanchez Primary Care 11/07/202212/30 [facility] MUSA Jeong Primary Care 04/08/202212/30
== END 2025-05-11 14:24 | disposition home or self-care (01) ==
LOC: HO.HPHYS 13:55
PROVIDERS: PCP Family Medicine; Visit Provider Physical Medicine & Rehabilitation
DX: M48.062 Spinal stenosis, lumbar region with neurogenic claudication (principal); M54.16 Radiculopathy, lumbar region; M96.1 Postlaminectomy syndrome, not elsewhere classified
CPT/HCPCS: 99214; G2211

== ENCOUNTER → 2025-05-11 13:55 | Outpatient (BNVA) | payer MEDICARE, OTHER, SELFPAY | PROVIDERS: PCP Family Medicine; Visit Provider Physical Medicine & Rehabilitation | DX: M48.062 Spinal stenosis, lumbar region with neurogenic claudication (principal); M54.16 Radiculopathy, lumbar region; M96.1 Postlaminectomy syndrome, not elsewhere classified | CPT/HCPCS: 99212 ==